=== PATIENT | female | born 1930 | race African-American/Black ===

== ENCOUNTER → 2017-01-28 | Outpatient (CLI) | payer OTHER ==
[~2017-01-28] MED LIST: ADULT LOW DOSE81 MG PO; ALLEGRA180 MG PO; AZOR 5-40 MG T1 EACH PO; BENADRYL25 MG PO; BYSTOLIC 5 MG5 MG PO; BYSTOLIC10 MG PO; CIPROFLOXACIN500 M1 PO; CO Q-10100 MG PO; CYMBALTA20 MG PO; DIPHENHIST50 MG PO; FLAGYL500 MG PO; FUROSEMIDE 20 M20 M1 PO; GLUCOPHAGE500 MG PO; HYDROCODONE-AP1 EAC6 PO; NEURONTIN 300300 M1 PO; PRILOSEC 20 MG20 MG PO; PROTONIX40 M1 PO; VITAMIN D10000 UNIT PO; ZOFRAN ODT4 MG PO
== END ==
LOC: RAD 03:16
DX: Z12.31 Encounter for screening mammogram for malignant neoplasm of breast (principal)

== ENCOUNTER 2017-04-03 16:36 | Emergency (ER) | payer OTHER ==
[~2017-04-03] VITALS: Ht 170.2 cm; Wt 97.1 kg
[~2017-04-03 16:36] MED LIST changes: +TOBRAMYCIN SULFA5 M1 OPHTHALMIC; +ULTRAM 50MG TAB50 MG PO
[2017-04-03] MEDS ORDERED: TRAMADOL 50 MG50 MG PO (17:02)
[2017-04-03] MEDS ORDERED: PREDNISONE 20 M20 MG PO (17:02)
== END 2017-04-03 18:30 | disposition home or self-care (01) ==
LOC: ER 16:36
DX: M54.32 Sciatica, left side (principal); I10 Essential (primary) hypertension; E11.9 Type 2 diabetes mellitus without complications; I48.91 Unspecified atrial fibrillation; Z90.711 Acquired absence of uterus with remaining cervical stump; Z88.0 Allergy status to penicillin; Z88.5 Allergy status to narcotic agent

== ENCOUNTER → 2017-04-16 | Outpatient (CLI) | payer OTHER ==
[~2017-04-16] MED LIST changes: +CLONIDINE0.1 PO; +PREDNISONE 20 M20 MG PO; +TRAMADOL 50 MG50 MG PO
== END ==
LOC: RAD 15:29
DX: M51.36 Other intervertebral disc degeneration, lumbar region (principal); M43.8X6 Other specified deforming dorsopathies, lumbar region; M43.16 Spondylolisthesis, lumbar region; M41.86 Other forms of scoliosis, lumbar region; M46.86 Other specified inflammatory spondylopathies, lumbar region; I48.0 Paroxysmal atrial fibrillation; K21.9 Gastro-esophageal reflux disease without esophagitis; E78.5 Hyperlipidemia, unspecified; I10 Essential (primary) hypertension; I48.92 Unspecified atrial flutter; E11.9 Type 2 diabetes mellitus without complications; E78.00 Pure hypercholesterolemia, unspecified

== ENCOUNTER → 2017-07-07 | Outpatient (CLI) | payer OTHER | LOC: CAT 08:24 | PROVIDERS: Internal Medicine | DX: M47.892 Other spondylosis, cervical region (principal); E04.2 Nontoxic multinodular goiter; M40.40 Postural lordosis, site unspecified; R13.10 Dysphagia, unspecified ==

== ENCOUNTER 2017-10-12 19:13 | Emergency (ER) | payer OTHER ==
[~2017-10-12] VITALS: Ht 167.6 cm; Wt 113.4 kg
--- NOTE | ~2017-10-12 | EKG ---
[place] [address] [facility] [place] [address] ELECTROCARDIOGRAM REPORT Name: AUNDREA GUNTER [id number] Admission: 10/12/17 Attend Phys: Discharge: 10/12/17 Date of : 31 Report #: [id number] THIS REPORT FOR: //name// [facility] ED Test Date: 2017-10-12 Test Time: 19:13:39 Pat Name: AUNDREA GUNTER Department: Room: Gender: F Hospital Technician: [facility] : 1930 Requested By: Alejandro Michelle Order Number: [id number] MD: Long John Measurements Intervals [place] Rate: 100 P: 65 HI: 193 QRS: 1 QRSD: 77 T: 40 QT: 335 QTc: 432 Interpretive Statements Sinus tachycardia Low voltage, precordial leads Compared to ECG 03/12/2016 00:38:27 Low QRS voltage now present Atrial fibrillation no longer present Electronically Signed On 10-13-2017 17:04:45 CDT by Long John [email or web address] <ELECTRONICALLY SIGNED> By: Long John MD, [facility] 10/13/17 1704 12 12 Long John MD, [facility] /EPI
[~2017-10-12 19:13] MED LIST changes: -CLONIDINE0.1 PO
[2017-10-12 19:55] LABS: ABSOLUTE NEUTROPHILS 4.4 thou/uL (1.4-8.2); BASOPHILS 0.5 % (0.0-2.0); EOSINOPHILS 0.8 % (0.0-3.0); HEMOGLOBIN 15.3 gm/dL (12.0-15.0); LYMPHOCYTES 37.7 % (24.0-44.0); MCH 27.8 pg (26.0-34.0); MCV 81.8 fL (80.0-100.0); MONOCYTES 10.6 % (1.0-8.0); PLATELET COUNT 287 thou/uL (150-400); POLYS 50.4 % (36.0-66.0); RDW 14.3 % (10.5-14.5); WBC 8.7 thou/uL (4.0-11.0)
[2017-10-12 19:59] LABS: ANION GAP 11 mmol/L (7-16); BUN 22 mg/dL (7-18); CALCIUM 10.1 mg/dL (8.5-10.1); CHLORIDE 103 mmol/L (98-107); CO2 25 mmol/L (21-32); CREATININE 1.3 mg/dL (0.6-1.0); GLUCOSE 126 mg/dL (74-106); POTASSIUM 4.2 mmol/L (3.5-5.1); SODIUM 139 mmol/L (136-145)
[2017-10-12 20:07] LABS: ALBUMIN 4.1 g/dL (3.4-5.0); SGOT 16 U/L (15-37); SGPT 19 U/L (30-65); TOTAL BILIRUBIN 0.4 mg/dL (<0.1-1.0); TROPONIN-I <0.06 ng/mL (<0.06)
[2017-10-12] MEDS ORDERED: CLONIDINE0.1 PO (20:25)
== END 2017-10-12 20:46 | disposition home or self-care (01) ==
LOC: ER 19:13
PROVIDERS: Emergency Medicine
DX: I10 Essential (primary) hypertension (principal); I48.2 Chronic atrial fibrillation; E11.9 Type 2 diabetes mellitus without complications; Z88.5 Allergy status to narcotic agent; Z88.0 Allergy status to penicillin

== ENCOUNTER → 2018-02-12 | Outpatient (CLI) | payer OTHER ==
[~2018-02-12] MED LIST changes: +CLONIDINE0.1 PO
== END ==
LOC: RAD 03:56
DX: Z12.31 Encounter for screening mammogram for malignant neoplasm of breast (principal)

== ENCOUNTER → 2018-08-05 | Outpatient (CLI) | payer OTHER ==
[~2018-08-05] VITALS: Ht 167.6 cm; Wt 98.0 kg
[~2018-08-05] MED LIST changes: +ARTIFICIAL TEAR15 M1 OPHTHALMIC; +COREG6.25 MG PO; +CYMBALTA30 MG PO; +MULTIVITAMINS1 EAC7 PO; +PIOGLITAZONE15 MG PO; +XARELTO20 MG PO; +ZANTAC 150MG T150 MG PO
--- NOTE | 2018-08-06 13:06 | PATH ---
[facility] [place] [address] PATHOLOGY RPT PROCEDURE Name: HEATHER JONES Room #: REG JORDON Reynoso.#: [id number] ������������������ Admission: 08/05/18 ������������������ Date of : 31 Discharge: Report #: [id number] Path Case #: [id number] [facility] Accession Number: [id number] . 01 Material submitted: . stomach - BX GASTRITIS . 01 Clinical history: . Pre-op diagnosis: GERD, non-cardiac chest pain, dysphagia Post-op diagnosis: Gastritis, hiatal hernia, erosive esophagitis, duodenal ulcers, dysphagia . 02 Diagnosis: Gastric mucosa, gastritis rule out H. pylori, endoscopic biopsy: - Mild reactive gastropathy. - Negative for intestinal metaplasia or atrophy. - Negative for Helicobacter pylori (properly controlled immunohistochemical stain performed). (IUV/db; 08/06/2018) LBQ/08/06/2018 . 02 Electronically signed: . Andreea Gonzales MD, Pathologist NPI- [id number] . 01 Gross description: . The specimen is received in formalin, labeled "Heatherricardo Jones, biopsy gastritis, R/O H. pylori". Received is are three segments of pale gomez soft tissue ranging in size from 0.3 to 0.6 cm in maximum dimensions. The specimen is submitted entirely in cassette A1. (CAA; 08/05/2018) QAC/QAC . 02 Pathologist provided ICD-10: K31.9 . 02 CPT . 991870, Y45571 Specimen Comment: A courtesy copy of this report has been sent to Specimen Comment: [phone], . Specimen Comment: Report sent to / DR SHABAZZ Performed at: 01 [place] [id number] [id number] MD Luis A Koch MD Phone: [phone] Performed at: 02 [facility] [address] [place] [address] PATHOLOGY RPT PROCEDURE Name: HEATHER JONES [facility] [id number] ������������������ Admission: 08/05/18 ������������������ Date of : 31 Discharge: Report #: [id number] Path Case #: [id number] [address] [place] [address] [id number] MD Andreea Gonzales MD Phone: [phone]
--- NOTE | 2018-08-07 08:08 | P ---
[facility] [place] [address] PROCEDURE REPORT Name: LYRICAUNDREA P Room #: REG [facility]#: [id number] Admission: 08/05/18 ������������������ Attend Phys: Quinn Ríos Discharge: ������������������ Date of : 31 Report #: [id number] THIS REPORT FOR: //name// CC: Quinn Bustillos MD DATE OF SERVICE: 08/05/2018 PROCEDURE PERFORMED: Upper endoscopy with biopsies and esophageal dilation. HISTORY OF PRESENT ILLNESS: The patient is an 87-year-old female who was seen in the office on 06/18/2018 with complaints of gastroesophageal reflux disease. At that time, was taking Pepcid b.i.d., but having increased symptoms of heartburn. She does report intermittent dysphagia especially with bread. We switched her to Zantac 150 b.i.d., but still having intermittent heartburn symptoms. We also discussed possible PPI therapy as well. DESCRIPTION OF PROCEDURE: The risks and benefits of the procedure were explained to the patient, those risks including but not limited to bleeding, perforation, the risk of sedation. She understood these risks and gave informed consent. Sedation was given using propofol per anesthesia. Next, using a standard Olympus upper endoscope, the scope was placed in the patient's mouth and advanced under direct vision through the esophagus, stomach and into the second portion of the duodenum. The larynx was normal in appearance. The upper and mid esophagus was normal. In the distal esophagus, grade B erosive esophagitis with a mild Schatzki's ring was noted. Upon entering the stomach, a small hiatal hernia was noted. Overall, the gastric mucosa was normal in the fundus and body; however, there was gastritis with several erosions noted in the gastric antrum. No evidence of bleeding or ulcerations. Biopsies were obtained to rule out H. pylori. The pylorus was normal and patent. In the duodenal bulb and first portion, several small superficial white ulcers were noted. No evidence of bleeding. The second portion of the duodenum was normal. The scope was then withdrawn and I proceeded with a 48-Icelandic Ring dilation of the esophagus without difficulty. The dilator was removed. The scope was reintroduced into the patient's stomach. There is a small mucosal tear at that Schatzki's ring after dilation. No evidence of bleeding. The scope was then withdrawn and the procedure terminated. The patient tolerated the procedure well. IMPRESSION: 1. Grade B erosive esophagitis. 2. Mild Schatzki's ring, status post dilation. 3. Small hiatal hernia. 4. Gastritis with gastric erosions. 5. Small superficial duodenal ulcers. [address] [address] PROCEDURE REPORT Name: AUNDREA GUNTER Room #: REG JORDON Nathan#: [id number] Admission: 08/05/18 ������������������ Attend Phys: Quinn Ríos Discharge: ������������������ Date of : 31 Report #: [id number] RECOMMENDATIONS: 1. Await biopsy results. 2. Observe the patient post-dilation. 3. Would recommend daily PPI therapy instead of H2 leonid as the patient has ongoing inflammation despite being on Zantac. Thank you for allowing me to participate in her care. ��������������������������������������������� <ELECTRONICALLY SIGNED> ���������������������������������������� By: Quinn Irizarry MD ��������������������������������������������� 08/07/18 0808 1031 0020 Quinn Irizarry MD /nt
== END | disposition home or self-care (01) ==
LOC: GI 08:41
DX: K31.9 Disease of stomach and duodenum, unspecified (principal); K22.2 Esophageal obstruction; K21.0 Gastro-esophageal reflux disease with esophagitis; K29.70 Gastritis, unspecified, without bleeding; K26.9 Duodenal ulcer, unspecified as acute or chronic, without hemorrhage or perforation; K44.9 Diaphragmatic hernia without obstruction or gangrene; I10 Essential (primary) hypertension; I48.0 Paroxysmal atrial fibrillation; E11.9 Type 2 diabetes mellitus without complications; Z98.41 Cataract extraction status, right eye; Z98.42 Cataract extraction status, left eye; Z98.890 Other specified postprocedural states; Z79.899 Other long term (current) drug therapy; Z90.711 Acquired absence of uterus with remaining cervical stump; Z79.01 Long term (current) use of anticoagulants; Z88.0 Allergy status to penicillin; Z88.6 Allergy status to analgesic agent
CPT/HCPCS: 62110; 62900

== ENCOUNTER → 2019-03-04 | Outpatient (CLI) | payer OTHER | LOC: RAD 14:35 | DX: Z12.31 Encounter for screening mammogram for malignant neoplasm of breast (principal) ==

== ENCOUNTER → 2019-06-08 | Outpatient (CLI) | payer OTHER | LOC: SJCVCIMAG 10:02 | DX: I73.9 Peripheral vascular disease, unspecified (principal); E11.51 Type 2 diabetes mellitus with diabetic peripheral angiopathy without gangrene; I48.91 Unspecified atrial fibrillation; M79.604 Pain in right leg; M79.605 Pain in left leg; I10 Essential (primary) hypertension; E78.00 Pure hypercholesterolemia, unspecified; Z88.5 Allergy status to narcotic agent; Z88.8 Allergy status to other drugs, medicaments and biological substances; Z79.899 Other long term (current) drug therapy ==

== ENCOUNTER → 2019-11-10 | Outpatient (CLI) | payer OTHER ==
[~2019-11-10] VITALS: Ht 167.6 cm; Wt 97.5 kg
--- NOTE | 2019-11-10 13:51 | EKG ---
[facility] [place] [address] ELECTROCARDIOGRAM REPORT Name: AUNDREA GUNTER Room #: REG [facility]#: [id number] Admission: 11/10/19 Attend Phys: Quinn Ríos Discharge: Date of : 31 Report #: [id number] THIS REPORT FOR: cc: Dario Bustillos MD, Stanley P. MD Couchonnal, Luis F. 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
--- NOTE | 2019-11-12 18:06 | PATH ---
[facility] [place] [address] PATHOLOGY RPT PROCEDURE Name: HEATHER JONES Room #: REG JORDON Reynoso.#: [id number] Admission: 11/10/19 Date of : 31 Discharge: Report #: [id number] Path Case #: [id number] [facility] Accession Number: [id number] . 01 Material submitted: . PART A: colon - TRANSVERSE COLON POLYP. Modifiers: transverse PART B: colon - SIGMOID COLON POLYP. Modifiers: sigmoid PART C: rectum - RECTAL POLYP . 01 Clinical history: . History of polyp. . 02 Diagnosis: A. Polyp, transverse colon polyp, endoscopic biopsy: - Tubular adenoma. - Negative for high-grade dysplasia. . B. Polyp, sigmoid colon polyp, endoscopic biopsy: - Tubular adenoma. - Negative for high-grade dysplasia. . C. Polyp, rectal polyp, endoscopic biopsy: - Hyperplastic polyp. - Negative for dysplasia. (IUV:sabina; 11/12/2019) QMS 11/12/2019 1608 Local . 02 Comment: . . 02 Electronically signed: . Andreea Gonzales MD, Pathologist NPI- [id number] . 01 Gross description: . A. Received in formalin labeled "Heather Jones, transverse colon polyp" is a 0.5 x 0.3 x 0.1 cm aggregate of gomez-brown soft tissue fragments. The specimen is submitted entirely in A1. . B. Received in formalin labeled "Heather Jones, sigmoid colon polyp" is a 0.3 x 0.2 x 0.2 cm gomez-brown mucosal polyp. The margin is inked. The specimen is submitted entirely in B1. . C. Received in formalin labeled "Heather Jones, rectal polyp" is a 0.3 x 0.3 x 0.1 cm gomez-brown soft tissue fragment. The specimen is submitted entirely in C1. ([facility]; 11/11/2019) [facility] 11/11/[address] [address] PATHOLOGY RPT PROCEDURE Name: HEATHER JONES P Room #: REG JORDON Nathan#: [id number] Admission: 11/10/19 Date of : 31 Discharge: Report #: [id number] Path Case #: [id number] . 02 Pathologist provided ICD-10: D12.3, D12.5, K62.1 . 02 CPT . 430041, 066334, 677815 Specimen Comment: A courtesy copy of this report has been sent to [phone] Specimen Comment: [phone] Specimen Comment: Report sent to / DR SHABAZZ Performed at: [address], [place] [id number] MD Luis A Koch MD Phone: [phone] Performed at: [address] [id number] MD Andreea Gonzales MD Phone: [phone]
--- NOTE | 2019-11-17 10:42 | P ---
[facility] [place] [address] PROCEDURE REPORT Name: AUNDREA GUNTER Isabel [facility] [id number] Admission: 11/10/19 Attend Phys: Quinn Ríos Discharge: Date of : 31 Report #: [id number] THIS REPORT FOR: cc: Dario Bustillos MD, Stanley P. MD McElhinney, Christian C. MD ~ CC: Quinn Bustillos MD DATE OF SERVICE: 11/10/2019 PROCEDURE PERFORMED: Colonoscopy with polypectomies. HISTORY OF PRESENT ILLNESS: The patient is an 89-year-old female with a history of colon polyps, here for routine 5-year followup. Denies any symptoms at this time. No family history of colon cancer. DESCRIPTION OF PROCEDURE: The risks and benefits of the procedure were explained to the patient, those risks including but not limited to bleeding, perforation and the risk of sedation. She understood these risks and gave informed consent. Sedation was given using propofol per anesthesia. Next, a digital rectal exam was initially performed, which was normal. Next, using a standard Olympus colonoscope, the scope was placed in the patient's anus and advanced under direct vision to the cecum. The overall prep was excellent. The cecum and ileocecal valve were normal in appearance. Ascending colon was normal. In the transverse colon, there was a 6 mm sessile polyp. This was removed by snare cautery, otherwise normal. The descending colon was normal. In the sigmoid colon, a 5 mm sessile polyp also noted and removed by snare cautery. Multiple diverticula were also noted in the sigmoid colon, no evidence of inflammation. In the rectum, there was a 3 mm sessile polyp removed by cold forceps. On retroflexion, small nonbleeding internal hemorrhoids were noted. The scope was then withdrawn and the procedure terminated. The patient tolerated the procedure well. IMPRESSION: 1. Three colonic polyps. 2. Sigmoid diverticulosis. 3. Internal hemorrhoids. 4. Otherwise, normal colonoscopy. RECOMMENDATIONS: Await biopsy results. [address] [address] PROCEDURE REPORT Name: AUNDREA GUNTER Room #: REG JORDON Nathan#: [id number] Admission: 11/10/19 Attend Phys: Quinn Ríos Discharge: Date of : 31 Report #: [id number] Thank you for allowing me to participate in her care. <ELECTRONICALLY SIGNED> By: Quinn Irizarry MD 11/17/19 1042 1116 1229 Quinn Irizarry MD /nt
== END ==
LOC: GI 08:55
PROVIDERS: ATTEND Specialist
DX: Z12.11 Encounter for screening for malignant neoplasm of colon (principal); Z86.010 Personal history of colon polyps; D12.3 Benign neoplasm of transverse colon; D12.5 Benign neoplasm of sigmoid colon; K62.1 Rectal polyp; K57.30 Diverticulosis of large intestine without perforation or abscess without bleeding; K64.8 Other hemorrhoids; I10 Essential (primary) hypertension; I48.91 Unspecified atrial fibrillation; E11.9 Type 2 diabetes mellitus without complications; F32.9 Major depressive disorder, single episode, unspecified; K21.9 Gastro-esophageal reflux disease without esophagitis; Z98.890 Other specified postprocedural states; Z79.899 Other long term (current) drug therapy; Z79.01 Long term (current) use of anticoagulants; Z90.711 Acquired absence of uterus with remaining cervical stump
CPT/HCPCS: 62110; 62900

== ENCOUNTER → 2019-12-08 | Outpatient (CLI) | payer OTHER | LOC: SJCVC 13:25 | PROVIDERS: ATTEND Internal Medicine Cardiovascular Disease | DX: R00.1 Bradycardia, unspecified (principal); I48.0 Paroxysmal atrial fibrillation; I10 Essential (primary) hypertension; K21.9 Gastro-esophageal reflux disease without esophagitis; R60.9 Edema, unspecified ==

== ENCOUNTER 2020-02-13 13:18 | Inpatient (IN) | payer OTHER ==
[~2020-02-13] VITALS: Ht 170.2 cm; Wt 99.8 kg
[2020-02-13 13:25] VITALS: BP 145/95
[2020-02-13] MEDS ORDERED: TOPROL XL25 MG PO (13:51)
[2020-02-13 14:06] LABS: HEMATOCRIT 44.8 % (37.0-47.0); HEMOGLOBIN 14.4 gm/dL (12.0-15.0); MCH 27.2 pg (26.0-34.0); MCHC 32.1 g/dL (28.0-37.0); MCV 84.7 fL (80.0-100.0); PLATELET COUNT 283 thou/uL (150-400); RBC 5.29 mil/uL (4.20-5.00); RDW 15.3 % (10.5-14.5); WBC 6.1 thou/uL (4.0-11.0)
[2020-02-13 14:09] LABS: URINE BILIRUBIN NEGATIVE (Negative); URINE BLOOD TRACE (Negative); URINE CLARITY CLEAR; URINE COLOR YELLOW; URINE GLUCOSE-RANDOM* NEGATIVE (Negative); URINE KETONES NEGATIVE (Negative); URINE LEUKOCYTES-REFLEX TRACE (Negative); URINE NITRITE-REFLEX NEGATIVE (Negative); URINE PROTEIN (DIPSTICK) NEGATIVE (Negative); URINE UROBILINOGEN 0.2 E.U./dl (0.2-1.0)
[2020-02-13 14:19] LABS: CALCIUM 10.3 mg/dL (8.5-10.1); CREATININE 1.2 mg/dL (0.6-1.0); POTASSIUM 4.2 mmol/L (3.5-5.1)
[2020-02-13 14:27] LABS: TOTAL BILIRUBIN 0.4 mg/dL (0.2-1.0); TOTAL PROTEIN 7.6 g/dL (6.4-8.2)
[2020-02-13 14:47] LABS: ATYPICAL LYMPHS 13 %
[2020-02-13 19:05] VITALS: BP 127/88
--- NOTE | 2020-02-13 19:13 | NUR ---
FIRST ATTEMPT AT REPORT. NO ANSWER FROM NURSE AFTER TRANSFER
[2020-02-13 19:24] VITALS: BP 156/87
[2020-02-13] MEDS ORDERED: DULOXETINE HCL30 MG PO (20:28)
[2020-02-13 20:50] VITALS: BP 136/68
[2020-02-14 00:22] VITALS: BP 139/73
--- NOTE | 2020-02-14 05:02 | NUR ---
pt is admitting for afib rvr, arrived to the floor at around 1999, pt is awake, alert and orientedx4, denies chest pain or sob, admission asessment as charted, admission education completed, initial cardiac strip showed sr, then afib, nw sb, on amiodarone gtt at 0.5, denies having concerns at this time, will continue to monitor
[2020-02-14 05:18] LABS: HEMATOCRIT 40.5 % (37.0-47.0); HEMOGLOBIN 13.1 gm/dL (12.0-15.0); MCH 27.5 pg (26.0-34.0); MCHC 32.4 g/dL (28.0-37.0); RBC 4.76 mil/uL (4.20-5.00); WBC 4.8 thou/uL (4.0-11.0)
[2020-02-14 05:48] VITALS: BP 145/79
[2020-02-14 06:23] LABS: CALCIUM 9.7 mg/dL (8.5-10.1); CREATININE 1.1 mg/dL (0.6-1.0); POTASSIUM 4.1 mmol/L (3.5-5.1)
--- NOTE | 2020-02-14 07:54 | EKG ---
[facility] [place] [address] ELECTROCARDIOGRAM REPORT Name: AUNDREA GUNTER Isabel Room #: 218-P ADM IN M.R.#: [id number] Admission: 02/13/20 Attend Phys: Arcadio Gallegos MD Discharge: Date of : 31 Report #: [id number] THIS REPORT FOR: cc: Dario Bustillos MD, Stanley P. MD Lundgren, Craig H. MD 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 02/14/20 0754 1335 1335 Long John MD, [facility] /EPI
[2020-02-14 08:40] VITALS: BP 151/74
--- NOTE | 2020-02-14 11:02 | 2DMMODE ---
[facility] [place] [address] 2 D/M-MODE ECHOCARDIOGRAM Name: LYRICLOGANAUNDREA P Room #: 218-P ADM IN M.R.#: [id number] Admission: 02/13/20 Attend Phys: Arcadio Gallegos MD Discharge: Date of : 31 Report #: [id number] THIS REPORT FOR: cc: Dario Bustillos MD, Stanley P. MD Park, Jin S. MD ~ APPROVED REPORT Study performed: 02/14/2020 11:00:39 EXAM: Comprehensive 2D, Doppler, and color-flow Echocardiogram Patient Location: Bedside Room #: 218 Status: routine BSA: 2.11 HR: 124 bpm BP: 145/79 mmHg Rhythm: Atrial Fibrillation Other Information Study Quality: Good Indications Diabetes Atrial Fibrillation Hypertension/HDD 2D Dimensions RVDd: 37.77 mm IVSd: 9.89 (7-11mm) LVOT Diam: 17.88 (18-24mm) LVDd: 37.03 mm PWd: 9.80 (7-11mm) Ascending Ao: 33.18 (22-36mm) LVDs: 16.95 (25-40mm) Aortic Root: 34.21 mm IVC: 12.00 mm Volumes Left Atrial Volume (Systole) Single Plane 4CH: 43.92 mL Single Plane 2CH: 40.49 mL LA ESV Index: 23.00 mL/m2 Aortic Valve AoV Peak Antonio.: 1.49 m/s AO Peak Gr.: 8.91 mmHg LVOT Max P.75 mmHg LVOT Max V: 1.20 m/s [facility] [address] [place] [address] 2 D/M-MODE ECHOCARDIOGRAM Name: LOGAN GUNTERSELENA Hall Room #: 218-P [facility] IN .R.#: [id number] Admission: 02/13/20 Attend Phys: Arcadio Gallegos MD Discharge: Date of : 31 Report #: [id number] KARYN Vmax: 2.02 cm2 Pulmonary Valve PV Peak Antonio.: 0.87 m/s PV Peak Gr.: 3.02 mmHg Tricuspid Valve TR Peak Antonio.: 2.58 m/s TR Peak Gr.: 26.81 mmHg PA Pressure: 32.00 mmHg Left Ventricle The left ventricle is normal size. There is normal LV segmental wall motion. There is normal left ventricular wall thickness. The left ventricular systolic function is normal. The left ventricular ejection fraction is within the normal range. LVEF is 65%. This study is not technically sufficient to allow evaluation of the LV diastolic function due to atrial fibrillation. Right Ventricle The right ventricle is normal size. The right ventricular systolic function is normal. Atria The left atrium size is normal. Right atrium is at the upper limits of normal. Aortic Valve The aortic valve is normal in structure. No aortic regurgitation is present. There is no aortic valvular stenosis. Mitral Valve The mitral valve is normal in structure. There is no mitral valve regurgitation noted. No evidence of mitral valve stenosis. Tricuspid Valve The tricuspid valve is normal in structure. There is mild tricuspid regurgitation. Estimated PAP 32 mmHg. Pulmonic Valve The pulmonary valve is normal in structure. There is no pulmonic valvular regurgitation. Great Vessels The aortic root is normal in size. IVC is normal in size and collapses >50% with inspiration. [facility] [address] [place] [address] 2 D/M-MODE ECHOCARDIOGRAM Name: AUNDREA GUNTER Room #: 218-P [facility] IN ..#: [id number] Admission: 02/13/20 Attend Phys: Arcadio Gallegos MD Discharge: Date of : 31 Report #: [id number] Pericardium There is no pericardial effusion. <Conclusion> The left ventricle is normal size. There is normal left ventricular wall thickness. The left ventricular systolic function is normal. The right ventricle is normal size. The aortic valve is normal in structure. There is no mitral valve regurgitation noted. There is mild tricuspid regurgitation. Estimated PAP 32 mmHg. <ELECTRONICALLY SIGNED> By: Jimbo Junior MD 02/14/201100 00 00 Jimbo Junior MD /INF
[2020-02-14 12:00] VITALS: BP 117/62
[2020-02-14 17:00] VITALS: BP 138/61
--- NOTE | 2020-02-14 18:40 | NUR ---
ASSESSMENT CHARTED - MEDS PER JUN - NO CO'S OF PAIN OR NAUSEA. PATIENT IN SR - GIVEN PO AMMIO ORDERED - IV AMMIO D/C. PT UP AD SHANA IN ROOM. FAMILY INTO SEE. TAMARA DIET AND FLUIDS. NO CO'S AT THE PRESENT TIME.
--- NOTE | 2020-02-14 18:46 | NUR ---
Met with patient who reports she lives at home with spouse and son. MOVIE EXTRA independent with adls and self care. She has no hx of DME and cont to drive. PCP Dr Dario Bustillos. She admits with afib. She reports steps in her home but no diffulty. patient anticipates dc home with no needs casemgt following.
[2020-02-14 20:14] VITALS: BP 131/73
[2020-02-15 03:23] VITALS: BP 131/73
--- NOTE | 2020-02-15 04:46 | NUR ---
assumed pt care at the change of shift, pt is awake, alert and orientedx4, sb on the monitor, meds given as per mar, denies pain or sob, remains on room air o2sat stable, remains sb on the monitor, resting in bed, denies concerns at this time, will continue to monitor
[2020-02-15 05:05] LABS: ANION GAP 10 mmol/L (7-16); BUN 17 mg/dL (7-18); CALCIUM 9.7 mg/dL (8.5-10.1); CHLORIDE 106 mmol/L (98-107); CHOLESTEROL 274 mg/dL (<200); CO2 23 mmol/L (21-32); CREATININE 1.2 mg/dL (0.6-1.0); GLUCOSE 123 mg/dL (74-106); HDL CHOLESTEROL 79 mg/dL (>40); LDL CHOLESTEROL 180 mg/dL (<100); POTASSIUM 4.5 mmol/L (3.5-5.1); SODIUM 139 mmol/L (136-145); TC:HDL 3.5 Ratio (Not establshd); TRIGLYCERIDE 78 mg/dL (<150); VLDL 16 mg/dL (<40)
[2020-02-15 05:16] LABS: SERUM ASSESSMENT Clear
[2020-02-15 05:53] VITALS: BP 145/68
[2020-02-15 07:23] VITALS: BP 123/66
--- NOTE | 2020-02-15 07:30 | EKG ---
[facility] [place] [address] ELECTROCARDIOGRAM REPORT Name: LYRICAUNDREA Hall Room #: 218-P ADM IN M.R.#: [id number] Admission: 02/13/20 Attend Phys: Arcadio Gallegos MD Discharge: Date of : 31 Report #: [id number] THIS REPORT FOR: cc: Dario Bustillos MD, Stanley P. 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 : 1930 Requested By: Tremayne Long Order Number: [id number] MD: Bryce Schulz Measurements Intervals [place] Rate: 83 P: RI: QRS: -13 QRSD: 74 T: -6 QT: 385 QTc: 453 Interpretive Statements Atrial flutter Left ventricular hypertrophy Compared to ECG 02/13/2020 13:35:29 Left ventricular hypertrophy now present Early repolarization no longer present Electronically Signed On 02-15-2020 7:30:37 LAST GREASER by Bryce Schulz [email or web address] <ELECTRONICALLY SIGNED> By: Bryce Schulz MD, FACC 02/15/20 0730 1457 1457 Bryce Shculz MD, [facility] /EPI
[2020-02-15] MEDS ORDERED: ATENOLOL 25MG T25 M1 PO (09:51)
[2020-02-15] MEDS ORDERED: PACERONE 200 M200 M1 PO (09:51)
--- NOTE | 2020-02-15 11:29 | NUR ---
ON-GOING ASSESSMENT: CM REVIEWED CHART. PT HAS ORDERS TO DISCHARGE HOME WITH NO NEEDS. CM SPOKE WITH PT WHO REPORTS SHE IS STILL VERY INDEPENDENT AND DRIVES. PT REPORTS SHE HAS NO DME OR THE NEED FOR IT. PT REPORTS HER SON IS COMING TO PICK HER UP ONCE SHE IS DISCHARGED. PT REPORTS NO NEEDS FROM CM.
[2020-02-15 11:56] VITALS: BP 123/66
--- NOTE | 2020-02-15 12:06 | NUR ---
ORDERS RECEIVED FOR PT EVAL AND TREAT. Pt SITTING AT EOB EATING BREAKFAST. HAS BEEN UP AD SHANA IN ROOM. LIVES WITH AND SON IN HOME WITH 8 AMRIK AND 2 STORY HOME INSIDE WITH BEDROOMS ON SECOND LEVEL. Pt REPORTED NO DIFFICULTY WITH STAIRS. NO USE OF AD. INDEP WITH ADLs. DENIED FALLS. DRIVES. Pt ADMITTED FOR COMPLICATIONS WITH AFIB; HAS HX OF AFIB. Pt DECLINED PT NEEDS AT THIS TIME. ACUTE PT TO SIGN OFF. ANTICIPATE Pt WILL BE SAFE TO RETURN HOME UPON MEDICAL CLEARANCE.
--- NOTE | 2020-02-15 12:38 | NUR ---
ASSESSMENT CHARTED - MEDS PER JUN - NO CO'S OF PAIN OR NAUSEA. TAMARA DIET AND FLUIDS. UP AD SHANA IN ROOM. PT HOME THIS AFTERNOON. INSTRUCTION RE HOME MEDS/ CARE AND FOLLOW GIVEN TO PATIENT - STATED UNDERSTANDING OF INSTRUCTION GIVEN. PT LEFT UNIT VIA WHEEL CHAIR HOME VIA PVT VEHICLE ACCOMAPNIED BY SON. NO CO'S AT TIME OF D/C.
== END 2020-02-15 12:20 | disposition home or self-care (01) | DRG 310 ==
LOC: ER 13:18 → 2N 18:21 → EROBS 18:21 → 2N 19:47
PROVIDERS: Emergency Medicine; Nurse Practitioner; ADMIT Hospitalist; ATTEND Hospitalist
DX: I48.92 Unspecified atrial flutter (principal); I10 Essential (primary) hypertension; I48.91 Unspecified atrial fibrillation; E11.9 Type 2 diabetes mellitus without complications; E55.9 Vitamin D deficiency, unspecified; G47.00 Insomnia, unspecified; F32.9 Major depressive disorder, single episode, unspecified; Z90.710 Acquired absence of both cervix and uterus; Z79.01 Long term (current) use of anticoagulants; Z79.899 Other long term (current) drug therapy; Z88.5 Allergy status to narcotic agent; Z88.0 Allergy status to penicillin
CPT/HCPCS: 10081; 10194

== ENCOUNTER → 2020-02-28 | Outpatient (CLI) | payer OTHER ==
[~2020-02-28] MED LIST changes: +ATENOLOL 25MG T25 M1 PO; +DULOXETINE HCL30 MG PO; +PACERONE 200 M200 M1 PO; +TOPROL XL25 MG PO
== END ==
LOC: RAD 13:22
PROVIDERS: ATTEND Internal Medicine
DX: Z12.31 Encounter for screening mammogram for malignant neoplasm of breast (principal)

== ENCOUNTER → 2020-02-29 | Outpatient (CLI) | payer OTHER | LOC: SJCVC 13:00 | PROVIDERS: ATTEND Internal Medicine Cardiovascular Disease | DX: R00.1 Bradycardia, unspecified (principal); I48.0 Paroxysmal atrial fibrillation; I10 Essential (primary) hypertension; E78.00 Pure hypercholesterolemia, unspecified; R60.9 Edema, unspecified ==

== ENCOUNTER 2020-03-10 15:48 | Emergency (ER) | payer OTHER ==
[~2020-03-10] VITALS: Ht 170.2 cm; Wt 98.9 kg
--- NOTE | ~2020-03-10 | EKG ---
[facility] [place] [address] ELECTROCARDIOGRAM REPORT Name: AUNDREA GUNTER [facility] [id number] Admission: Attend Phys: Discharge: Date of : 31 Report #: [id number] THIS REPORT FOR: cc: Dario Bustillos MD, Stanley P. 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 By: 19 Epiphany Epiphany, /SHANNEN
[2020-03-10 17:51] LABS: HEMATOCRIT 42.3 % (37.0-47.0); HEMOGLOBIN 13.8 gm/dL (12.0-15.0); MCH 27.7 pg (26.0-34.0); MCHC 32.6 g/dL (28.0-37.0); MCV 84.9 fL (80.0-100.0); RBC 4.98 mil/uL (4.20-5.00); RDW 15.1 % (10.5-14.5); WBC 5.1 thou/uL (4.0-11.0)
[2020-03-10 17:58] LABS: ANION GAP 7 mmol/L (7-16); BUN 21 mg/dL (7-18); CALCIUM 9.8 mg/dL (8.5-10.1); CHLORIDE 103 mmol/L (98-107); CO2 26 mmol/L (21-32); CREATININE 1.4 mg/dL (0.6-1.0); GLUCOSE 105 mg/dL (74-106); POTASSIUM 4.5 mmol/L (3.5-5.1); SODIUM 136 mmol/L (136-145)
[2020-03-10 18:07] LABS: TROPONIN-I <0.06 ng/mL (<0.06)
[2020-03-10 18:27] VITALS: BP 152/69
== END 2020-03-10 18:27 | disposition home or self-care (01) ==
LOC: ER 15:48
PROVIDERS: Emergency Medicine
DX: T78.40XA Allergy, unspecified, initial encounter (principal); T46.2X5A Adverse effect of other antidysrhythmic drugs, initial encounter; I10 Essential (primary) hypertension; I48.91 Unspecified atrial fibrillation; E11.9 Type 2 diabetes mellitus without complications; Z79.899 Other long term (current) drug therapy; Z88.0 Allergy status to penicillin; Z88.5 Allergy status to narcotic agent; Y92.89 Other specified places as the place of occurrence of the external cause

== ENCOUNTER → 2020-03-22 | Outpatient (CLI) | payer OTHER | LOC: SJCVCIMAG 08:22 | PROVIDERS: ATTEND Internal Medicine Cardiovascular Disease | DX: R00.1 Bradycardia, unspecified (principal); I48.92 Unspecified atrial flutter; I48.91 Unspecified atrial fibrillation; I10 Essential (primary) hypertension; E78.00 Pure hypercholesterolemia, unspecified; R60.9 Edema, unspecified; E11.9 Type 2 diabetes mellitus without complications; Z79.01 Long term (current) use of anticoagulants; Z79.899 Other long term (current) drug therapy ==

== ENCOUNTER → 2020-04-05 | Outpatient (CLI) | payer OTHER | LOC: SJCVC 13:50 | PROVIDERS: ATTEND Internal Medicine Cardiovascular Disease | DX: R00.1 Bradycardia, unspecified (principal); I48.0 Paroxysmal atrial fibrillation; I48.3 Typical atrial flutter; I10 Essential (primary) hypertension; E78.5 Hyperlipidemia, unspecified; E11.9 Type 2 diabetes mellitus without complications; Z79.899 Other long term (current) drug therapy; Z88.8 Allergy status to other drugs, medicaments and biological substances; Z88.5 Allergy status to narcotic agent ==

== ENCOUNTER → 2020-04-24 | Outpatient (CLI) | payer OTHER ==
[~2020-04-24] MED LIST changes: +AMIODARONE HCL400 MG PO; +AMLODIPINE-OLM1 EAC3 PO
[2020-04-24 09:37] LABS: ABSOLUTE NEUTROPHILS 2.8 thou/uL (1.4-8.2); BASOPHILS 1.2 % (0.0-2.0); EOSINOPHILS 1.1 % (0.0-3.0); HEMATOCRIT 44.4 % (37.0-47.0); HEMOGLOBIN 14.3 gm/dL (12.0-15.0); LYMPHOCYTES 26.3 % (24.0-44.0); MCH 27.4 pg (26.0-34.0); MCHC 32.2 g/dL (28.0-37.0); MCV 84.9 fL (80.0-100.0); MONOCYTES 10.6 % (1.0-8.0); PLATELET COUNT 296 thou/uL (150-400); POLYS 60.8 % (36.0-66.0); RBC 5.22 mil/uL (4.20-5.00); WBC 4.6 thou/uL (4.0-11.0)
[2020-04-24 09:58] LABS: ALBUMIN 3.9 g/dL (3.4-5.0); CALCIUM 10.3 mg/dL (8.5-10.1); CREATININE 1.3 mg/dL (0.6-1.0); TOTAL BILIRUBIN 0.5 mg/dL (0.2-1.0); TOTAL PROTEIN 7.6 g/dL (6.4-8.2)
== END ==
LOC: CAT 07:16
PROVIDERS: ATTEND Internal Medicine Cardiovascular Disease
DX: Z01.818 Encounter for other preprocedural examination (principal); I48.91 Unspecified atrial fibrillation; K44.9 Diaphragmatic hernia without obstruction or gangrene

== ENCOUNTER → 2020-04-24 | Outpatient (CLI) | payer OTHER ==
[~2020-04-24] MED LIST changes: -AMIODARONE HCL400 MG PO; -AMLODIPINE-OLM1 EAC3 PO
== END ==
LOC: LAB 08:42
PROVIDERS: ATTEND Internal Medicine Cardiovascular Disease
DX: Z01.812 Encounter for preprocedural laboratory examination (principal); Z20.822 Contact with and (suspected) exposure to COVID-19

== ENCOUNTER 2020-04-28 06:27 | Observation (INO) | payer OTHER ==
[~2020-04-28] VITALS: Ht 170.2 cm; Wt 100.7 kg
--- NOTE | ~2020-04-28 | P ---
[facility] [place] [address] PROCEDURE REPORT Name: AUNDREA GUNTER Isabel Room #: 200-I [facility] Venita#: [id number] Admission: 04/28/20 Attend Phys: Storm James MD Discharge: Date of : 32 Report #: [id number] THIS REPORT FOR: cc: Dario Bustillos MD, Stanley P. MD Couchonnal, Luis F. MD ~ DATE OF SERVICE: 04/28/2020 ATRIAL FIBRILLATION ABLATION PREOPERATIVE DIAGNOSES: 1. Atrial fibrillation. 2. Atrial flutter. POSTOPERATIVE DIAGNOSES: 1. Atrial fibrillation. 2. Atrial flutter. HISTORY: The patient is an 89-year-old female with a history of recurrent atrial fibrillation and atrial flutter, here for ablation. PROCEDURES PERFORMED: 1. Atrial fibrillation ablation, CPT code 06651 2. 3D mapping, CPT code 82217. 3. Intracardiac echo, CPT code 25626. 4. Second pathway ablation, CPT code 13444. DESCRIPTION OF PROCEDURE: The patient underwent informed consent. We discussed the details of the procedure including the risks, which include but not limited to bleeding, vascular damage, stroke, [place], and cardiac perforation. She understood these risks and is willing to proceed. The patient was brought to EP laboratory in a fasting and sedated state and prepped and draped in sterile fashion. Next, I injected lidocaine at the right groin and obtained access to the right femoral vein x 3, placing an 8, 9 and 7-[place] short sheath using the modified Seldinger technique. Next, under fluoroscopy, I placed a decapolar catheter into the coronary sinus and an ICE catheter into the right atrium. At baseline, she was in sinus rhythm. Her left atrium showed a large left common ostium with the left superior and left inferior branches. 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 Next, the patient was systemically heparinized and a transseptal was used using a SL1 sheath and a [place] needle. I did have to attempt transseptal 3 times due to the fibrotic interatrial septum and the fact that it was aneurysmal. Eventually, I was able to get my J-tipped wire to go into the left common ostium and then I was able to exchange the SL1 [address] [address] PROCEDURE REPORT Name: AUNDREA GUNTER Room #: 200-I [facility] Mehdi Nathan#: [id number] Admission: 04/28/20 Attend Phys: Storm James MD Discharge: Date of : 32 Report #: [id number] sheath for the cryo sheath. Next, via the cryo sheath, I placed a Lasso catheter in the left atrium and created a detailed 3D voltage map and 3D geometry of the left atrium. I then exchanged for the cryo balloon and started by isolating the left common ostium. I performed an initial 4-minute freeze in the left inferior branch of the common ostium, which resulted in isolation. I then performed 4 additional freezes along the common ostium with a superior to flexion and 2 freezes with an inferior to flexion, each was a 4 minutes' duration. Post-ablation, the left common ostium demonstrated entrance and exit block. Next, I turned my attention to the right-sided veins. The right superior pulmonary vein underwent a 180-second freeze, which resulted in isolation within 30 seconds. The right inferior pulmonary vein underwent an initial 130-second freeze with poor attempts and the second freeze was with the guidewire sub-selected into the inferior branch of the right inferior pulmonary vein. This vein was of 4 minutes' duration and resulted in isolation. Therefore, repeat voltage map was created and there was evidence of wide circumferential ablation of all 3 pulmonary veins including the common ostium. Ablation of atrial flutter given her history of recurrent atrial flutter. She underwent cavotricuspid isthmus dependent flutter ablation. Using an 8-mm ablation catheter and a ramp sheath, ablation was performed at 70 bermudez and 60 degrees. Pre-ablation, the transisthmus conduction time was 90 milliseconds. Post-ablation, it was 140 milliseconds with evidence of bidirectional block. As such, the procedure was concluded. Using intracardiac ultrasound, there was no evidence of a pericardial effusion. The patient received systemic protamine and once ACT was within acceptable range, catheters and sheaths were pulled. Hemostasis was obtained. [id number]-ev-cofpf suture was performed in the right groin. The patient awoke neurologically and hemodynamically intact. No complications and no significant bleeding. CONCLUSIONS: 1. Successful AFib ablation with isolation of the pulmonary veins. 2. Successful atrial flutter ablation with evidence of bidirectional block. By: [id number] Storm James MD /nt
[2020-04-28 07:25] VITALS: BP 136/66
[2020-04-28] MEDS ORDERED: AMIODARONE HCL400 MG PO (07:28)
[2020-04-28] MEDS ORDERED: AMLODIPINE-OLM1 EAC3 PO (07:29)
[2020-04-28] MEDS ORDERED: XARELTO20 MG PO (07:29)
[2020-04-28 07:39] LABS: ABSOLUTE NEUTROPHILS 2.9 thou/uL (1.4-8.2); EOSINOPHILS 1.8 % (0.0-3.0); HEMATOCRIT 41.9 % (37.0-47.0); HEMOGLOBIN 13.5 gm/dL (12.0-15.0); LYMPHOCYTES 31.3 % (24.0-44.0); MCH 27.3 pg (26.0-34.0); MCHC 32.3 g/dL (28.0-37.0); MCV 84.5 fL (80.0-100.0); MONOCYTES 9.7 % (1.0-8.0); PLATELET COUNT 283 thou/uL (150-400); POLYS 56.2 % (36.0-66.0); RBC 4.97 mil/uL (4.20-5.00); RDW 14.8 % (10.5-14.5); WBC 5.1 thou/uL (4.0-11.0)
[2020-04-28 07:51] LABS: CREATININE 1.3 mg/dL (0.6-1.0); POTASSIUM 4.1 mmol/L (3.5-5.1)
[2020-04-28 07:56] LABS: ALBUMIN 3.8 g/dL (3.4-5.0); TOTAL BILIRUBIN 0.3 mg/dL (0.2-1.0); TOTAL PROTEIN 7.2 g/dL (6.4-8.2)
[2020-04-28 08:01] LABS: APTT 26.4 Seconds (24.5-32.8)
[2020-04-28 19:00] VITALS: BP 112/59
--- NOTE | 2020-04-28 19:18 | NUR ---
TO THE UNIT POST ABLATION - PT ORIENTED TO ROOM AND BEDSPACE. VSS SEE VS SHEET IN CHART - GROIN STABLE. NO CO' OF PAIN OR NAUSEA. TAMARA DIET AND FLUIDS. ZAY DELVALLE AT THE PRESENT. ASSESSMENT CHARTED - P OFF EDREST AT THE PRESENT TIME - HEAD OF BED RAISED. NO CO'S AT THE PRESENT TIME.
[2020-04-29 00:02] VITALS: BP 119/64
[2020-04-29 04:00] VITALS: BP 124/65
--- NOTE | 2020-04-29 04:29 | NUR ---
ASSUMED PATIENT CARE AT 1845. VITAL SIGNS STABLE WITH PATIENT HAVING NO COMPLAINTS OF PAIN CARDIAC OR OTHERWISE. FULLY ORIENTED, PATIENT IS ABLE TO CALL APPROPRIATELY FOR NEEDS AND PARTICIPATE IN CARE. PATIENT HAS BEEN SINUS RHYTHM THROUGHOUT SHIFT. CATH SITE CLEAN DRY AND INTACT WITH NO INDICATIONS OF HEMATOMA. UP WITH STANDBY ASSISTANCE THROUGHOUT SHIFT INCIDENT FREE. CONTINUE PLAN OF CARE.
[2020-04-29 07:20] VITALS: BP 118/63
[2020-04-29 10:48] VITALS: BP 118/63
[2020-04-29 11:05] VITALS: BP 115/57
--- NOTE | 2020-04-29 15:28 | NUR ---
PT ALERT AND ORIENTED TIMES FOUR. VSS. PT DENIES PAIN/SOA. PT TOLERATES MEDS AND MEALS. PT UP AB SHANA WITH STEADY GAIT. PLANS FOR DISCHARGE TODAY. WILL CONTINUE TO MONITOR.
== END 2020-04-29 15:42 | disposition home or self-care (01) ==
LOC: CATH 06:27 → 2N 11:47 → CATH 12:13 → 2N 04-29 15:42
PROVIDERS: ADMIT Internal Medicine Cardiovascular Disease; ATTEND Internal Medicine Cardiovascular Disease
DX: I48.91 Unspecified atrial fibrillation (principal); I48.92 Unspecified atrial flutter; I10 Essential (primary) hypertension; E11.9 Type 2 diabetes mellitus without complications; E78.5 Hyperlipidemia, unspecified; Z79.899 Other long term (current) drug therapy
CPT/HCPCS: 70005

== ENCOUNTER 2020-07-13 17:27 | Emergency (ER) | payer OTHER ==
[~2020-07-13] VITALS: Ht 170.2 cm; Wt 96.6 kg
[~2020-07-13 17:27] MED LIST changes: +AMIODARONE HCL400 MG PO; +AMLODIPINE-OLM1 EAC3 PO
[2020-07-13 19:09] VITALS: BP 148/76
== END 2020-07-13 19:28 | disposition home or self-care (01) ==
LOC: ER 17:27
DX: S09.90XA Unspecified injury of head, initial encounter (principal); R42 Dizziness and giddiness; I48.91 Unspecified atrial fibrillation; I10 Essential (primary) hypertension; F32.9 Major depressive disorder, single episode, unspecified; E11.9 Type 2 diabetes mellitus without complications; Z90.711 Acquired absence of uterus with remaining cervical stump; Z98.890 Other specified postprocedural states; Z79.899 Other long term (current) drug therapy; Z88.0 Allergy status to penicillin; Z88.5 Allergy status to narcotic agent; Z88.8 Allergy status to other drugs, medicaments and biological substances; W01.198A Fall on same level from slipping, tripping and stumbling with subsequent striking against other object, initial encounter; Y93.01 Activity, walking, marching and hiking; Y92.89 Other specified places as the place of occurrence of the external cause; Y99.8 Other external cause status

== ENCOUNTER → 2020-08-01 | Outpatient (CLI) | payer OTHER | LOC: SJCVC 13:19 | PROVIDERS: ATTEND Internal Medicine Cardiovascular Disease | DX: I48.0 Paroxysmal atrial fibrillation (principal); I48.3 Typical atrial flutter; I10 Essential (primary) hypertension; E78.5 Hyperlipidemia, unspecified; R00.1 Bradycardia, unspecified; E11.9 Type 2 diabetes mellitus without complications; E78.00 Pure hypercholesterolemia, unspecified; Z98.890 Other specified postprocedural states; Z88.8 Allergy status to other drugs, medicaments and biological substances; Z88.5 Allergy status to narcotic agent; Z79.899 Other long term (current) drug therapy; Z82.49 Family history of ischemic heart disease and other diseases of the circulatory system ==

== ENCOUNTER → 2020-09-20 | Outpatient (CLI) | payer OTHER | LOC: SJCVC 13:08 | PROVIDERS: ATTEND Internal Medicine Cardiovascular Disease | DX: I48.0 Paroxysmal atrial fibrillation (principal); I48.3 Typical atrial flutter; I10 Essential (primary) hypertension; R60.9 Edema, unspecified; E11.9 Type 2 diabetes mellitus without complications; E78.00 Pure hypercholesterolemia, unspecified; R00.2 Palpitations; Z90.710 Acquired absence of both cervix and uterus; Z88.5 Allergy status to narcotic agent; Z88.8 Allergy status to other drugs, medicaments and biological substances; Z79.899 Other long term (current) drug therapy; Z82.49 Family history of ischemic heart disease and other diseases of the circulatory system ==

== ENCOUNTER → 2020-10-04 | Outpatient (CLI) | payer OTHER | LOC: SJCVC 09:02 | PROVIDERS: ATTEND Internal Medicine Cardiovascular Disease | DX: I10 Essential (primary) hypertension (principal); E11.9 Type 2 diabetes mellitus without complications; I48.91 Unspecified atrial fibrillation; E78.5 Hyperlipidemia, unspecified; Z79.899 Other long term (current) drug therapy ==

== ENCOUNTER → 2020-10-18 | Outpatient (CLI) | payer OTHER | LOC: SJCVC 14:13 → SJCVCIMAG 14:13 | PROVIDERS: ATTEND Internal Medicine Cardiovascular Disease | DX: I70.201 Unspecified atherosclerosis of native arteries of extremities, right leg (principal); M79.604 Pain in right leg; I48.92 Unspecified atrial flutter; I10 Essential (primary) hypertension; R60.9 Edema, unspecified; R00.1 Bradycardia, unspecified; E78.00 Pure hypercholesterolemia, unspecified; E11.9 Type 2 diabetes mellitus without complications; Z79.899 Other long term (current) drug therapy; Z88.5 Allergy status to narcotic agent; Z88.8 Allergy status to other drugs, medicaments and biological substances ==

== ENCOUNTER → 2020-10-31 | Outpatient (CLI) | payer OTHER | LOC: SJCVC 13:31 | PROVIDERS: ATTEND Internal Medicine Cardiovascular Disease | DX: I48.91 Unspecified atrial fibrillation (principal); I48.92 Unspecified atrial flutter; I10 Essential (primary) hypertension; E78.5 Hyperlipidemia, unspecified; R00.1 Bradycardia, unspecified; E11.9 Type 2 diabetes mellitus without complications; E78.00 Pure hypercholesterolemia, unspecified; Z79.899 Other long term (current) drug therapy; Z88.8 Allergy status to other drugs, medicaments and biological substances; Z88.5 Allergy status to narcotic agent ==

== ENCOUNTER → 2020-11-23 | Outpatient (CLI) | payer OTHER | LOC: SJCVC 14:18 | PROVIDERS: ATTEND Internal Medicine Cardiovascular Disease | DX: I48.91 Unspecified atrial fibrillation (principal); E78.00 Pure hypercholesterolemia, unspecified; I10 Essential (primary) hypertension; R60.9 Edema, unspecified; E11.9 Type 2 diabetes mellitus without complications; Z88.8 Allergy status to other drugs, medicaments and biological substances; Z90.710 Acquired absence of both cervix and uterus; Z79.899 Other long term (current) drug therapy; Z82.49 Family history of ischemic heart disease and other diseases of the circulatory system ==

== ENCOUNTER → 2020-12-14 | Outpatient (CLI) | payer OTHER | LOC: SJCVC 14:10 | PROVIDERS: ATTEND Internal Medicine Cardiovascular Disease | DX: I48.91 Unspecified atrial fibrillation (principal); E78.00 Pure hypercholesterolemia, unspecified; I10 Essential (primary) hypertension; R60.9 Edema, unspecified; Z88.8 Allergy status to other drugs, medicaments and biological substances; Z79.899 Other long term (current) drug therapy; Z88.5 Allergy status to narcotic agent ==

== ENCOUNTER → 2021-01-11 | Outpatient (CLI) | payer OTHER | LOC: SJCVC 11:28 | PROVIDERS: ATTEND Internal Medicine Cardiovascular Disease | DX: I10 Essential (primary) hypertension (principal) ==

== ENCOUNTER → 2021-01-18 | Outpatient (CLI) | payer OTHER | LOC: SJCVC 09:51 | PROVIDERS: ATTEND Internal Medicine Cardiovascular Disease | DX: E11.9 Type 2 diabetes mellitus without complications (principal); I48.91 Unspecified atrial fibrillation; I10 Essential (primary) hypertension; E78.5 Hyperlipidemia, unspecified ==

== ENCOUNTER → 2021-01-30 | Outpatient (CLI) | payer OTHER | LOC: SJCVC 13:12 | PROVIDERS: ATTEND Internal Medicine Cardiovascular Disease | DX: I48.0 Paroxysmal atrial fibrillation (principal); I10 Essential (primary) hypertension; E78.00 Pure hypercholesterolemia, unspecified; R60.9 Edema, unspecified; Z82.49 Family history of ischemic heart disease and other diseases of the circulatory system; Z88.5 Allergy status to narcotic agent; Z88.8 Allergy status to other drugs, medicaments and biological substances; Z79.899 Other long term (current) drug therapy ==

== ENCOUNTER → 2021-02-27 | Outpatient (CLI) | payer OTHER | LOC: SJCVC 13:57 | PROVIDERS: ATTEND Internal Medicine Cardiovascular Disease | DX: I10 Essential (primary) hypertension (principal); I48.0 Paroxysmal atrial fibrillation; E78.00 Pure hypercholesterolemia, unspecified; E11.9 Type 2 diabetes mellitus without complications; R60.9 Edema, unspecified; Z88.8 Allergy status to other drugs, medicaments and biological substances; Z79.899 Other long term (current) drug therapy ==

== ENCOUNTER → 2021-03-01 | Outpatient (CLI) | payer OTHER | LOC: BC 09:47 | PROVIDERS: ATTEND Internal Medicine | DX: Z12.31 Encounter for screening mammogram for malignant neoplasm of breast (principal); N64.89 Other specified disorders of breast ==

== ENCOUNTER 2021-03-03 20:16 | Emergency (ER) | payer OTHER ==
[~2021-03-03] VITALS: Ht 157.5 cm; Wt 89.8 kg
[2021-03-03 21:44] LABS: ABSOLUTE NEUTROPHILS 2.3 thou/uL (1.4-8.2); BASOPHILS 1.8 % (0.0-2.0); EOSINOPHILS 5.2 % (0.0-3.0); HEMATOCRIT 36.9 % (37.0-47.0); LYMPHOCYTES 35.7 % (24.0-44.0); MCH 27.5 pg (26.0-34.0); MCHC 32.5 g/dL (28.0-37.0); MCV 84.6 fL (80.0-100.0); PLATELET COUNT 249 thou/uL (150-400); POLYS 45.3 % (36.0-66.0); RBC 4.36 mil/uL (4.20-5.00); RDW 14.8 % (10.5-14.5)
[2021-03-03 21:48] LABS: CALCIUM 9.2 mg/dL (8.5-10.1); CREATININE 1.3 mg/dL (0.6-1.0)
[2021-03-04 00:55] VITALS: BP 158/81
== END 2021-03-04 00:58 | disposition home or self-care (01) ==
LOC: ER 20:16
PROVIDERS: Student in an Organized Health Care Education/Training Program
DX: R07.89 Other chest pain (principal); I10 Essential (primary) hypertension; E11.9 Type 2 diabetes mellitus without complications; F32.9 Major depressive disorder, single episode, unspecified; Z90.711 Acquired absence of uterus with remaining cervical stump; Z79.899 Other long term (current) drug therapy; Z88.0 Allergy status to penicillin; Z88.5 Allergy status to narcotic agent

== ENCOUNTER 2021-03-12 19:34 | Emergency (ER) | payer OTHER ==
[~2021-03-12] VITALS: Ht 162.6 cm; Wt 72.6 kg
[2021-03-12 20:22] VITALS: BP 163/76
[2021-03-13] MEDS ORDERED: MEDROLDOSEPACK PO (00:22)
== END 2021-03-13 00:50 | disposition home or self-care (01) ==
LOC: ER 19:34
DX: R21 Rash and other nonspecific skin eruption (principal); I10 Essential (primary) hypertension; E11.9 Type 2 diabetes mellitus without complications; I48.91 Unspecified atrial fibrillation; F32.9 Major depressive disorder, single episode, unspecified; Z90.711 Acquired absence of uterus with remaining cervical stump; Z98.890 Other specified postprocedural states; Z79.891 Long term (current) use of opiate analgesic; Z79.1 Long term (current) use of non-steroidal anti-inflammatories (NSAID); Z79.899 Other long term (current) drug therapy; Z88.0 Allergy status to penicillin; Z88.6 Allergy status to analgesic agent; Z88.8 Allergy status to other drugs, medicaments and biological substances; Z88.5 Allergy status to narcotic agent